=== PATIENT | male | born 1960 | race African-American/Black ===

== ENCOUNTER 2023-05-12 10:46 | Emergency (ER) | payer OTHER ==
[2023-05-12 10:53] VITALS: BP 123/72; PULSE 105; RESP 16; TEMP 100.3; BMI 25.7
[2023-05-12] MEDS ORDERED: IBUPROFEN 600 MG TABLET (FP) PO ONE ×2 (11:25→11:29)
[2023-05-12 12:15] LABS: THROAT:GRP A STREP NOT DETECTED (NOTDETECTED)
== END 2023-05-12 12:46 | disposition home or self-care (01) ==
LOC: JERFT 10:46
DX: J01.10 Acute frontal sinusitis, unspecified (principal)
CPT/HCPCS: 0241U-QW; 87651; 99283-25

== ENCOUNTER 2023-05-16 12:42 | Inpatient (IN) | payer OTHER ==
[2023-05-16] MEDS ORDERED: ALBUTEROL SO4 2.5/IPRATROPIUM 0.5 INH SOL 3 ML VIAL.NEB. NEB ONE ×2 (13:19→13:34)
[2023-05-16 13:42] LABS: HEMATOCRIT 34.1 % (35.4-49); HEMOGLOBIN 11.7 GM/dL (11.7-16.9); MCH 31.6 pg (25.7-33.7); MCHC 34.4 g/dl (32.0-35.9); MEAN CELL VOLUME 91.8 fl (80-96); MEAN PLT VOLUME 9.2 fl (7.5-11.1); PLATELET COUNT 297 10^3/uL (134-434); RBC 3.71 M/mm3 (4.00-5.60); RDW 16.2 % (11.9-15.9); WHITE BLOOD COUNT 17.8 K/mm3 (4.0-10.0)
[2023-05-16 13:49] LABS: VENOUS BASE EXCESS -3.7 mmol/L (-2-2); VENOUS PH 7.329 (7.310-7.410)
[2023-05-16 13:51] LABS: INR 1.49 (0.83-1.09); PROTHROMBIN TIME (PATIENT) 17.2 SEC (9.7-13.0)
[2023-05-16 14:12] LABS: ALBUMIN 2.3 g/dl (3.4-5.0)
[2023-05-16 14:16] LABS: BILIRUBIN,TOTAL 0.3 mg/dL (0.2-1)
[2023-05-16 14:17] LABS: TOT PROT 5.6 g/dl (6.4-8.2)
[2023-05-16 14:19] LABS: ANISOCYTOSIS 1+; MACROCYTOSIS 0
[2023-05-16 14:23] LABS: BLOOD UREA NITROGEN 11.1 mg/dL (7-18)
[2023-05-16] MEDS ORDERED: VANCOMYCIN 1 GM in D5W (PRE-DOCKED) 1,000 MG/250 ML (RESTRICTED TO ID ONLY IVPB ONE (15:05)
[2023-05-16] MEDS ORDERED: PIPERACILLIN/TAZOB 4.5 GM 4.5 GM in DEXTROSE 5%-WATER 100 ML IVPB ONE (15:05)
[2023-05-16] MEDS ORDERED: PIPERACILLIN/TAZOB 4.5 GM 4.5 GM/100 ML BAG IVPB ONE (15:12)
[2023-05-16] MEDS ORDERED: VANCOMYCIN/WATER FOR INJ (PEG) 1,000 MG/200 ML BAG IVPB ONE (15:12)
[2023-05-16] MEDS ORDERED: ACETAMINOPHEN 1000 MG/100 ML BAG IVPB ONE (15:15)
[2023-05-16] MEDS ORDERED: ACETAMINOPHEN INJECTION 100 ML IVPB ONE (15:16)
[2023-05-16] MEDS ORDERED: AZITHROMYCIN IVPB 500 MG/250 ML BAG IVPB ONE (19:44)
[2023-05-16] MEDS: AZITHROMYCIN IVPB 500 MG/250 ML BAG IVPB SCH (19:47)
[2023-05-16] MEDS ORDERED: ACETAMINOPHEN 1000 MG/100 ML BAG IVPB PRN (21:00)
[2023-05-16] MEDS: CEFEPIME 2 GM in DEXTROSE 5%-WATER 100 ML IVPB SCH (22:08)
[2023-05-16 23:52] VITALS: BMI 24.3
[2023-05-17] MEDS: CEFEPIME 2 GM in DEXTROSE 5%-WATER 100 ML IVPB SCH ×3 (06:24→22:40)
[2023-05-17] MEDS: ENOXAPARIN NA (PORCINE) 40 MG/0.4 ML DISP.SYRIN SQ SCH (09:46)
[2023-05-17] MEDS: AZITHROMYCIN IVPB 500 MG/250 ML BAG IVPB SCH (09:46)
[2023-05-17] MEDS ORDERED: VANCOMYCIN 1 GM in D5W (PRE-DOCKED) 1,000 MG/250 ML (RESTRICTED TO ID ONLY IVPB SCH (10:00)
[2023-05-17 11:11] LABS: HEMATOCRIT 33.2 % (35.4-49); HEMOGLOBIN 11.2 GM/dL (11.7-16.9); LYMPH % 9.6 % (8-40); MCH 31.5 pg (25.7-33.7); MCHC 33.7 g/dl (32.0-35.9); MEAN CELL VOLUME 93.5 fl (80-96); MEAN PLT VOLUME 9.9 fl (7.5-11.1); MONO % 5.4 % (3.8-10.2); PLATELET COUNT 320 10^3/uL (134-434); RBC 3.55 M/mm3 (4.00-5.60); RDW 15.8 % (11.9-15.9); WHITE BLOOD COUNT 19.9 K/mm3 (4.0-10.0)
[2023-05-17] MEDS: VANCOMYCIN/WATER 1250 MG 1,250 MG/250 ML BAG IVPB SCH ×2 (11:23→23:47)
[2023-05-17 11:28] LABS: POTASSIUM 4.4 mmol/L (3.5-5.1)
[2023-05-17 12:01] LABS: CALCIUM 8.1 mg/dL (8.5-10.1)
[2023-05-17 12:02] LABS: ALBUMIN 2.1 g/dl (3.4-5.0)
[2023-05-17 12:04] LABS: BILIRUBIN,TOTAL 0.5 mg/dL (0.2-1); CREATININE 0.9 mg/dL (0.55-1.3)
[2023-05-17 12:05] LABS: TOT PROT 5.4 g/dl (6.4-8.2)
[2023-05-17] MEDS: methylPREDNISolone NA SUCC 40 MG/1 ML VIAL IVPUSH SCH (13:40)
[2023-05-17] MEDS: guaiFENesin 200 MG/10 ML 10 ML UNIT-DOSE CUPS PO PRN ×2 (13:43→22:40)
[2023-05-17] MEDS ORDERED: VANCOMYCIN 1 GM/200 ML PREMIX BAG (RESTRICTED TO ID ONLY) IVPB SCH (15:00)
[2023-05-17] MEDS: ALBUTEROL SO4 2.5/IPRATROPIUM 0.5 INH SOL 3 ML VIAL.NEB. NEB SCH ×2 (16:18→20:03)
[2023-05-17 19:31] LABS: HIV INTERPRETATION NEGATIVE (NEGATIVE)
[2023-05-18] MEDS: CEFEPIME 2 GM in DEXTROSE 5%-WATER 100 ML IVPB SCH ×2 (06:30→13:39)
[2023-05-18] MEDS: ALBUTEROL SO4 2.5/IPRATROPIUM 0.5 INH SOL 3 ML VIAL.NEB. NEB SCH ×4 (07:20→20:14)
[2023-05-18] MEDS: AZITHROMYCIN IVPB 500 MG/250 ML BAG IVPB SCH (09:55)
[2023-05-18] MEDS: ENOXAPARIN NA (PORCINE) 40 MG/0.4 ML DISP.SYRIN SQ SCH (09:55)
[2023-05-18] MEDS: methylPREDNISolone NA SUCC 40 MG/1 ML VIAL IVPUSH SCH (09:55)
[2023-05-18] MEDS: VANCOMYCIN/WATER 1250 MG 1,250 MG/250 ML BAG IVPB SCH (09:55)
[2023-05-18] MEDS ORDERED: IBUPROFEN 800 MG/8 ML IJ IVPB PRN (10:32)
[2023-05-18] MEDS: PANTOPRAZOLE 40 MG TABLET PO SCH (10:55)
[2023-05-18] MEDS: guaiFENesin 200 MG/10 ML 10 ML UNIT-DOSE CUPS PO PRN ×2 (10:55→21:23)
[2023-05-18] MEDS: CEFTRIAXONE 2 GM in DEXTROSE 5%-WATER 100 ML IVPB SCH (21:05)
[2023-05-19] MEDS: ALBUTEROL SO4 2.5/IPRATROPIUM 0.5 INH SOL 3 ML VIAL.NEB. NEB SCH ×4 (07:35→20:09)
[2023-05-19 07:59] LABS: HEMATOCRIT 33.3 % (35.4-49); HEMOGLOBIN 10.9 GM/dL (11.7-16.9); MCH 30.8 pg (25.7-33.7); MCHC 32.8 g/dl (32.0-35.9); MEAN PLT VOLUME 9.1 fl (7.5-11.1); PLATELET COUNT 385 10^3/uL (134-434); RBC 3.54 M/mm3 (4.00-5.60); RDW 15.9 % (11.9-15.9); WHITE BLOOD COUNT 20.8 K/mm3 (4.0-10.0)
[2023-05-19 08:25] LABS: POTASSIUM 4.6 mmol/L (3.5-5.1)
[2023-05-19 08:27] LABS: CALCIUM 8.5 mg/dL (8.5-10.1)
[2023-05-19 08:28] LABS: ALBUMIN 2.2 g/dl (3.4-5.0); BLOOD UREA NITROGEN 17.5 mg/dL (7-18)
[2023-05-19 08:31] LABS: CREATININE 0.9 mg/dL (0.55-1.3)
[2023-05-19 08:33] LABS: BILIRUBIN,TOTAL 0.3 mg/dL (0.2-1); TOT PROT 5.7 g/dl (6.4-8.2)
[2023-05-19 08:45] LABS: ANISOCYTOSIS 0; HELMET CELLS 0; HOWELL-JOLLY BODIES 0; MACROCYTOSIS 0; OVALOCYTE 0; ROULEAU 0; SICKELED CELLS 0; TARGET CELLS 0; TEAR DROP CELLS 0; TOXIC GRANULATION 0
[2023-05-19] MEDS: CEFTRIAXONE 2 GM in DEXTROSE 5%-WATER 100 ML IVPB SCH (10:41)
[2023-05-19] MEDS: methylPREDNISolone NA SUCC 40 MG/1 ML VIAL IVPUSH SCH (10:41)
[2023-05-19] MEDS: AZITHROMYCIN IVPB 500 MG/250 ML BAG IVPB SCH (10:41)
[2023-05-19] MEDS: PANTOPRAZOLE 40 MG TABLET PO SCH (10:42)
[2023-05-19] MEDS: ENOXAPARIN NA (PORCINE) 40 MG/0.4 ML DISP.SYRIN SQ SCH (10:42)
[2023-05-20] MEDS: ALBUTEROL SO4 2.5/IPRATROPIUM 0.5 INH SOL 3 ML VIAL.NEB. NEB SCH ×4 (08:55→20:10)
[2023-05-20] MEDS: PANTOPRAZOLE 40 MG TABLET PO SCH (09:41)
[2023-05-20] MEDS: methylPREDNISolone NA SUCC 40 MG/1 ML VIAL IVPUSH SCH (09:41)
[2023-05-20] MEDS: CEFTRIAXONE 2 GM in DEXTROSE 5%-WATER 100 ML IVPB SCH (09:42)
[2023-05-20] MEDS: AZITHROMYCIN IVPB 500 MG/250 ML BAG IVPB SCH (09:43)
[2023-05-20] MEDS: ENOXAPARIN NA (PORCINE) 40 MG/0.4 ML DISP.SYRIN SQ SCH (09:43)
[2023-05-20 11:56] LABS: BASO % 0.7 % (0-2.0); EOS % 0.5 % (0-4.5); HEMATOCRIT 35.2 % (35.4-49); HEMOGLOBIN 11.5 GM/dL (11.7-16.9); LYMPH % 11.6 % (8-40); MCHC 32.7 g/dl (32.0-35.9); MEAN CELL VOLUME 94.9 fl (80-96); MEAN PLT VOLUME 9.3 fl (7.5-11.1); MONO % 3.8 % (3.8-10.2); NEUT % 83.4 % (42.8-82.8); PLATELET COUNT 361 10^3/uL (134-434); RBC 3.71 M/mm3 (4.00-5.60); RDW 16.2 % (11.9-15.9); WHITE BLOOD COUNT 14.4 K/mm3 (4.0-10.0)
[2023-05-20] MEDS ORDERED: ALBUTEROL SULFATE 0.021% (0.63 MG/3 ML) VIAL.NEB NEB PRN (12:15)
[2023-05-20] MEDS: guaiFENesin 200 MG/10 ML 10 ML UNIT-DOSE CUPS PO PRN (21:44)
[2023-05-20 21:49] VITALS: RESP 18
[2023-05-21] MEDS: ALBUTEROL SO4 2.5/IPRATROPIUM 0.5 INH SOL 3 ML VIAL.NEB. NEB SCH ×4 (08:05→19:42)
[2023-05-21] MEDS: PANTOPRAZOLE 40 MG TABLET PO SCH (09:18)
[2023-05-21] MEDS: CEFTRIAXONE 2 GM in DEXTROSE 5%-WATER 100 ML IVPB SCH (09:18)
[2023-05-21] MEDS: methylPREDNISolone NA SUCC 40 MG/1 ML VIAL IVPUSH SCH (09:19)
[2023-05-21] MEDS: AZITHROMYCIN IVPB 500 MG/250 ML BAG IVPB SCH (09:19)
[2023-05-21] MEDS: ENOXAPARIN NA (PORCINE) 40 MG/0.4 ML DISP.SYRIN SQ SCH (09:20)
[2023-05-21 09:53] LABS: EOS % 0.6 % (0-4.5); HEMATOCRIT 38.2 % (35.4-49); HEMOGLOBIN 12.7 GM/dL (11.7-16.9); LYMPH % 17.8 % (8-40); MCH 31.3 pg (25.7-33.7); MCHC 33.1 g/dl (32.0-35.9); MEAN CELL VOLUME 94.4 fl (80-96); MEAN PLT VOLUME 9.3 fl (7.5-11.1); MONO % 3.8 % (3.8-10.2); NEUT % 76.8 % (42.8-82.8); PLATELET COUNT 435 10^3/uL (134-434); RBC 4.05 M/mm3 (4.00-5.60); RDW 15.6 % (11.9-15.9); WHITE BLOOD COUNT 17.5 K/mm3 (4.0-10.0)
[2023-05-21 10:47] LABS: POTASSIUM 5.2 mmol/L (3.5-5.1)
[2023-05-21 10:48] LABS: CALCIUM 9.1 mg/dL (8.5-10.1)
[2023-05-21 10:50] LABS: BLOOD UREA NITROGEN 14.1 mg/dL (7-18)
[2023-05-21 10:54] LABS: BILIRUBIN,TOTAL 0.6 mg/dL (0.2-1); TOT PROT 6.5 g/dl (6.4-8.2)
[2023-05-21 10:59] LABS: ALBUMIN 2.6 g/dl (3.4-5.0)
[2023-05-21] MEDS ORDERED: ALBUTEROL SO4 0.083% IH SOL 2.5 MG/3 ML VIAL.NEB. NEB PRN (14:50)
[2023-05-22] MEDS: guaiFENesin 200 MG/10 ML 10 ML UNIT-DOSE CUPS PO PRN (03:50)
[2023-05-22 06:12] VITALS: BP 117/61; PULSE 79; TEMP 98.5
[2023-05-22] MEDS: ALBUTEROL SO4 2.5/IPRATROPIUM 0.5 INH SOL 3 ML VIAL.NEB. NEB SCH ×2 (08:45→12:10)
[2023-05-22] MEDS: ENOXAPARIN NA (PORCINE) 40 MG/0.4 ML DISP.SYRIN SQ SCH (10:15)
[2023-05-22] MEDS: PANTOPRAZOLE 40 MG TABLET PO SCH (10:15)
[2023-05-22] MEDS: CEFTRIAXONE 2 GM in DEXTROSE 5%-WATER 100 ML IVPB SCH (10:15)
== END 2023-05-22 15:41 | disposition home or self-care (01) | DRG 137 ==
LOC: JER 12:42 → JERBED 15:50 → J7W 20:27
PROVIDERS: ADMIT Internal Medicine; ATTEND Internal Medicine
DX: J15.0 Pneumonia due to Klebsiella pneumoniae (principal); J44.9 Chronic obstructive pulmonary disease, unspecified; F17.210 Nicotine dependence, cigarettes, uncomplicated; R09.02 Hypoxemia; D72.829 Elevated white blood cell count, unspecified
CPT/HCPCS: 0241U-QW; 36415; 71045-TC-FY; 71250-TC; 80053; 82803; 83880; 84484; 85025; 85610; 85730; 87040; 87070; 87081; 87186; 87205; 87389; 87633; 87899; 93005; 93010; 94010; 94640; 99285-25

== ENCOUNTER 2024-01-19 22:13 | Emergency (ER) | payer OTHER ==
[2024-01-19 22:17] VITALS: BP 107/65; PULSE 64; RESP 16; TEMP 97; BMI 27.4
[2024-01-19] MEDS ORDERED: NALOXONE HCL 0.4 MG/ML VIAL ONE (23:51)
[2024-01-19] MEDS: SODIUM CHLORIDE 0.9% 500 ML INFUS.BAG IV ONE (23:58)
[2024-01-19] MEDS: NALOXONE HCL 0.4 MG/ML VIAL IVPUSH ONE (23:58)
== END 2024-01-20 00:15 | disposition left against medical advice (07) ==
LOC: JER 22:13
DX: F10.90 Alcohol use, unspecified, uncomplicated (principal); R40.0 Somnolence; R53.83 Other fatigue
CPT/HCPCS: 99283-25

== ENCOUNTER 2024-07-27 10:10 | Emergency (ER) | payer OTHER ==
[2024-07-27 10:19] VITALS: BP 138/84; PULSE 88; RESP 18; TEMP 98.4; BMI 26.0
[2024-07-27] MEDS: ACETAMINOPHEN 500 MG TABLET (FP) PO ONE (10:31)
[2024-07-27] MEDS ORDERED: ALBUTEROL SO4 2.5/IPRATROPIUM 0.5 INH SOL 3 ML VIAL.NEB. NEB ONE (10:32)
[2024-07-27] MEDS: ALBUTEROL SO4 2.5/IPRATROPIUM 0.5 INH SOL 3 ML VIAL.NEB. NEB ONE (10:32)
[2024-07-27] MEDS ORDERED: ACETAMINOPHEN 500 MG TABLET (FP) ONE (10:32)
== END 2024-07-27 12:24 | disposition home or self-care (01) ==
LOC: JERFT 10:10
PROC: 3E0F7GC Introduction of Other Therapeutic Substance into Respiratory Tract, Via Natural or Artificial Opening (ICD-10-PCS; principal; 2024-07-27)
DX: J20.9 Acute bronchitis, unspecified (principal); M79.10 Myalgia, unspecified site; R09.81 Nasal congestion; R68.83 Chills (without fever); J34.89 Other specified disorders of nose and nasal sinuses; Z20.822 Contact with and (suspected) exposure to COVID-19
CPT/HCPCS: 0241U-QW; 71045-TC-FY; 99284-25